=== PATIENT | female | born 1985 | race African-American/Black ===

== ENCOUNTER 2022-08-09 00:18 | Day surgery (SDC) | payer MEDICARE, MEDICAID, SELFPAY ==
[2022-08-05 08:36] VITALS: BMI 21.9
--- NOTE | 2022-08-05 08:46 | PC.NURSE ---
Report to the Outpatient Waiting Room, entrance under the green pavilion located off [facility], at time 1200 on date 08/09/22. Planned Procedure Time: 1400. Time changes happen often and if your time is changed the preop area will call you the afternoon before. - You and your visitor will be asked to self-screen and do not enter if you have any COVID symptoms. - A mask is optional within the hospital at this time. Patients may have clear liquids (water, carbonated beverages, clear teas, apple juice) until 3 hours prior to surgery with a maximum of 20 ounces. - No food from midnight until time of surgery Take the following medications with a SIP of water the morning of surgery: AMLODIPINE, INHALER IF NEEDED DO NOT STOP ANY OF YOUR OTHER PRESCRIPTION MEDICATIONS PRIOR TO SURGERY?EXCEPT THE FOLLOWING Medications to discontinue per physician: N/A Date to take last dose: N/A Please no make-up, nail thai, hairspray, perfume, deodorant, or body powder the day of surgery. No jewelry (including any body piercings) or valuables the day of surgery, leave them at home. Please take a shower or bath the night before, or the morning of, surgery with an antibacterial soap. Wear comfortable, loose fitting clothing. - Jewelry must be removed prior to entering the operating room. Rings and piercings that are not removed may be cut off. - The hospital will not accept responsibility for valuables. - Please leave all valuables, including medications, at home the day of surgery. If you are going home after surgery, a licensed tractor driver must drive you home. - NO public transportation without another adult if you receive anesthesia. - We recommend that an adult stay with you for 24 hours following discharge. - We also recommend that you do not drive, make important decision, drink alcoholic beverages, or take any drugs that were not prescribed by your health care provider for at least 24 hours after your discharge time. Follow any additional instructions given to you from your surgeon. If you or anyone in your household have experienced Covid symptoms in the past week, please notify your surgeon or the nurse liaison at the phone number below for possible testing. Telephone instructions given to PT - MIKE RAJAN and asked if any additional questions and then verbalized understanding. Patient advised to call surgeon office or pre surgery nurse liaison [phone] if any additional questions.
--- NOTE | 2022-08-07 16:45 | P.HP_ITS ---
H&P: HPI History of Present Illness Date/Time: 08/07/22 16:45 Chief Complaint: incontinence Narrative: urge incontinence, fecal incontinence, intrinsic sphincter deficiency. Successful trial of neuromodulation. Desires InterStim implant as well as bulking agent Review of Systems Review of Systems: All systems reviewed & are unremarkable except as noted in HPI and below [facility] Social History Social History Years smoked: 10 Smoking status: Former smoker Tobacco type: cigarettes Smoking end date: 04/04/18 Alcohol intake: current Drinks per week: 2 Substance use: never Substance use type: does not use Living arrangements: with family Spiritual care concerns: No Meds Home Medications and Allergies Home Medications Medication Instructions Recorded Confirmed Type albuterol sulfate 2.5 mg/0.5 mL 5 mg inhalation Q6H PRN 08/05/22 08/05/22 History solution for nebulization Bronchospasm albuterol sulfate 90 mcg/actuation 1 inh inhalation QID PRN 08/05/22 08/05/22 History aerosol inhaler Bronchospasm amlodipine 10 mg tablet 10 mg PO DAILY 08/05/22 08/05/22 History diphenhydramine HCl 25 mg capsule 25 mg PO HS PRN Allergy Symptoms 08/05/22 08/05/22 History (Benadryl) norgestimate-ethinyl estradiol 1 tablet PO DAILY 08/05/22 08/05/22 History 0.18 mg/0.215mg/0.25mg-35 mcg(28)tablet (Ortho Tri-Cyclen (28)) Allergies Allergy/AdvReac Type Severity Reaction Status Date / Time No Known Allergies Allergy Verified 08/05/22 08:33 Exam Narrative: no acute distress normal breathing alert orient x3 minimal to no urethral mobility Assessment and Plan Assessment and plan (1) Urge incontinence: Code(s): N39.41 - Urge incontinence Status: Acute (2) Fecal incontinence not due to organic disease: Code(s): F98.1 - Encopresis not due to a substance or known physiological condition Status: Acute (3) Intrinsic sphincter deficiency (ISD): Code(s): N36.42 - Intrinsic sphincter deficiency (ISD) Status: Acute Plan InterStim implant and bulking agent. Understands the risks of bleeding, infection, lack of efficacy, need for revisions and battery changes, need for repeat bulking agent. She agrees to proceed
--- NOTE | ~2022-08-09 | XR_ITS ---
EXAMINATION: FLUORO NEUROSTIM INSERT < 1HR DATE: 08/09/2022 14:41 INDICATION: Neurostimulator implant TECHNIQUE: Frontal and lateral fluoroscopic images of the sacrum were obtained. The amount of fluoros copy time used during this procedure was 0.7 minutes. COMPARISON: None. FINDINGS: Distal tip of an Interstim lead extends from posterior to anterior through an S4 neural for amen. Markers are not present on the supplied images to determine whether this is on the left or righ t and would correlate with procedure note.. IMPRESSION: 1. Interstim lead extends through an S4 neural foramen. See procedure note for further detail. Reviewed, dictated and finalized at location A.
--- NOTE | 2022-08-09 07:17 | WPDHPUPDATE1 ---
History and Physical Update Update Date/Time: 08/09/22 07:17 History and Physical has been reviewed, including an updated exam of the patient. There are NO changes in the patient's condition. Risks, benefits, and alternatives have been discussed and questions answered. Patient agrees to proceed with procedure.
[2022-08-09 12:30] VITALS: BP 148/108; PULSE 101; RESP 16; TEMP 36.3; O2SAT 100
[2022-08-09] MEDS: LACTATED RINGERS 1,000 ML 30 ML IV CONT (12:30)
--- NOTE | 2022-08-09 13:08 | P.PNAN_ITS ---
Anes - Initial Pre Proc Eval Procedure: Operation Date: 08/09/22 14:00 Proposed Procedures p Neurostimulator Implant With Bulking Agent - John Parra MD Date/Time: 08/09/22 13:08 Surgeon: John Parra MD Pre Op Diagnosis: urge incont, Intrinsic sphincter deficiency Patient Data Age: 37 Gender: F Height: 1.57 m Weight: 54.5 kg Allergies Allergy/AdvReac Type Severity Reaction Status Date / Time No Known Allergies Allergy Verified 08/05/22 08:33 Home Medications Medication Instructions Recorded Confirmed Type albuterol sulfate 2.5 mg/0.5 mL 5 mg inhalation Q6H PRN 08/05/22 08/05/22 History solution for nebulization Bronchospasm albuterol sulfate 90 mcg/actuation 1 inh inhalation QID PRN 08/05/22 08/05/22 History aerosol inhaler Bronchospasm amlodipine 10 mg tablet 10 mg PO DAILY 08/05/22 08/05/22 History diphenhydramine HCl 25 mg capsule 25 mg PO HS PRN Allergy Symptoms 08/05/22 08/05/22 History (Benadryl) norgestimate-ethinyl estradiol 1 tablet PO DAILY 08/05/22 08/05/22 History 0.18 mg/0.215mg/0.25mg-35 mcg(28)tablet (Ortho Tri-Cyclen (28)) hydrocodone 5 mg-acetaminophen 325 1 tablet PO Q6H PRN pain #20 tabs 08/09/22 Rx mg tablet phenazopyridine 200 mg tablet 200 mg PO TID PRN pain 6 doses #30 08/09/22 Rx (Pyridium) tabs Patient hx anesthesia problems: none Family hx anesthesia problems: none Results Review: All pre-operative results and documents have been reviewed as part of the pre- operative evaluation. [facility] Past Medical History Medical History (Updated 08/09/22 @ 13:09 by Juan José Angelo MD) Asthma Chronic renal insufficiency HTN (hypertension) Social History Social History Years smoked: 10 Smoking status: Former smoker Tobacco type: cigarettes Smoking end date: 04/04/18 Alcohol intake: current Drinks per week: 2 Substance use: never Substance use type: does not use Living arrangements: with family Spiritual care concerns: No Anes - Eval Final PreProcedure Day of Procedure 08/09/22 13:08 Patient weight: normal Heart: regular rate and rhythm Lungs: clear to auscultation Airway: Mallampati scale class II Neurological: alert and oriented Last oral intake: >/= 8 hours ASA classification: III Emergent: no Anesthetic plan: proceed Anesthesia type and monitoring: general GIVS and standard monitoring Results Review: All pre-operative results and documents have been reviewed as part of the pre- operative evaluation. Informed Consent: The patient's anesthetic plan and its attendant risks and benefits were discussed with the patient/family/POA. Questions were solicited and answers provided to the satisfaction of the patient/family/POA.
[2022-08-09] MEDS: ceFAZolin 2 GM/D5W 50 ML 2 GM/50 ML BAG IVPB (13:55)
[2022-08-09] MEDS: ceFAZolin SODIUM 1 GM VIAL (14:12)
[2022-08-09] MEDS: BUPIVACAINE/EPINEPHRINE 0.25% 10 ML VIAL 30 ML INFILTRATE (14:13)
[2022-08-09 14:58] VITALS: BP 182/118; PULSE 92; RESP 20; O2SAT 98
--- NOTE | 2022-08-09 15:08 | P.OP_ITS ---
Procedure Note - Detailed Date of Procedure 08/09/22 Pre-op Diagnosis urge incont, fecal incontinence, Intrinsic sphincter deficiency Post-op Diagnosis Same Procedure Performed Implantation of sacral lead 51280 Fluoroscopic guidance for needle placement 82088-96 Placement of implantable pulse generator 84665 Complex neurostimulator programming impedance check 25738 Cystoscopy with suburethral injection of implant material [id number] Surgeon John Parra MD Anesthesia MAC and Local Indications This is a patient with refractory urge urinary incontinence as well as fecal incontinence. They have undergone a successful trial of sacral nerve stimulation. They present today for permanent implantation. They understand the risks of bleeding, infection, decreased efficacy, need for revision and battery changes. They agree to proceed She also has intrinsic sphincter deficiency and stress incontinence. She will undergo a bulking agent. She understands risks of bleeding, infection, lack of efficacy, retention, need for repeat procedures. She agrees to proceed Findings See dictated Description of Procedure They were correctly identified and informed consent was obtained. There brought to the operating room. There placed in the prone position. There given appropriate perioperative antibiotics. A time-out performed. I used fluoroscopy to nighat out my sacral landmarks in the AP and the lateral o rientation. I anesthetized the skin. I entered the S3 foramen. I monitored the needle with fluoroscopy. I got appropriate Dani and toe response at a low threshold. I made a skin madan. I placed a stylet. I placed the lead introducer sheath. I thinned placed and deployed to my lead. I got appropriate responses again at a low threshold. I marked out the site of the pulse generator. I anesthetized the skin and made that incision. I created a subcutaneous pocket to house the pulse generator. I tunneled the lead towards this pocket. Appropriate connections were made between the lead and the battery. It was placed in the pocket. It was programmed and impedances were checked and found to be normal. I irrigated out all wounds. I ensured hemostasis. I closed the subcutaneous tissues with 2 Vicryl. I closed the skin with 4 0 Vicryl. Glue was applied. She was then transitioned to carefully to a stretcher and then back to the bed in the lithotomy position. She had mild urethral stenosis which resolved with a dilation to 24 [place]. Bladder was examined was normal. Urethra was open. I shows a site 2 cm distal bladder neck. I injected my bulking agent circumferentially. I used 1 syringe total. There was excellent bulking effect. Her bladder was left partially full. She was then awakened and transferred to the PACU in stable condition. Implants Sacral neurostimulator Estimated Blood Loss 5 Drains No Packing No Pathology None sent Condition Stable Disposition PACU
[2022-08-09 15:30] VITALS: BP 190/124; PULSE 87; RESP 18
[2022-08-09] MEDS: oxyCODONE HCL (*CRX) 5 MG TAB IR PO (15:36)
[2022-08-09 16:00] VITALS: BP 169/109; PULSE 68; RESP 18
[2022-08-09 16:30] VITALS: BP 146/99; PULSE 82; RESP 18
[2022-08-09 16:49] VITALS: BP 138/88; PULSE 88; RESP 16
== END 2022-08-09 17:08 | disposition home or self-care (01) ==
PROVIDERS: Visit Provider Urology
PROC: (CPT 64561; principal; 2022-08-09 14:00)
DX: N39.41 Urge incontinence (principal); N36.42 Intrinsic sphincter deficiency (ISD); F98.1 Encopresis not due to a substance or known physiological condition; I12.9 Hypertensive chronic kidney disease with stage 1 through stage 4 chronic kidney disease, or unspecified chronic kidney disease; N18.9 Chronic kidney disease, unspecified; J45.909 Unspecified asthma, uncomplicated; Z87.891 Personal history of nicotine dependence; Z79.51 Long term (current) use of inhaled steroids
CPT/HCPCS: 64561; 64590; 51715; 99199; A9270; C1767; C1778; C1787; J0690; J2250; J2405; J2704; J3010; J7030; J7120; L8606